=== PATIENT | male | born 1965 | race Caucasian/White ===

== ENCOUNTER → 2020-02-10 09:35 | Outpatient (BNVA) | payer BC, SELFPAY | PROVIDERS: Family Provider Nurse Practitioner Family; PCP Nurse Practitioner Family; Visit Provider Nurse Practitioner Family | DX: I10 Essential (primary) hypertension (principal); E34.9 Endocrine disorder, unspecified; E55.9 Vitamin D deficiency, unspecified | CPT/HCPCS: 80053; 80061; 82652; 83036; 84403; 84443; 85025; G0103 ==

== ENCOUNTER → 2020-07-23 11:45 | Outpatient (BNVA) | payer BC, SELFPAY | PROVIDERS: Family Provider Nurse Practitioner Family; PCP Nurse Practitioner Family; Visit Provider Nurse Practitioner Family | DX: E34.9 Endocrine disorder, unspecified (principal) | CPT/HCPCS: 84403 ==

== ENCOUNTER → 2021-06-21 10:03 | Outpatient (BNVA) | payer BC, SELFPAY | PROVIDERS: Family Provider Nurse Practitioner Family; PCP Nurse Practitioner Family; Visit Provider Nurse Practitioner Family | DX: I10 Essential (primary) hypertension (principal); Z12.5 Encounter for screening for malignant neoplasm of prostate; Z13.6 Encounter for screening for cardiovascular disorders; E34.9 Endocrine disorder, unspecified; D50.9 Iron deficiency anemia, unspecified; Z79.899 Other long term (current) drug therapy; E55.9 Vitamin D deficiency, unspecified; N52.9 Male erectile dysfunction, unspecified; Z00.00 Encounter for general adult medical examination without abnormal findings | CPT/HCPCS: 36415; 80053; 80061; 81003; 82306; 82607; 82746; 83036; 83540; 84402; 84403; 84443; 85025; G0103 ==

== ENCOUNTER 2021-07-11 12:28 | Outpatient (CLI) | payer BC, SELFPAY ==
[2021-07-11 12:57] LABS: Basophils # 0.1 10^3/uL (0.0-0.1); Basophils % 0.7 %; Eosinophils # 0.2 10^3/uL (0.0-0.8); Eosinophils % 2.5 %; Hematocrit 51.5 % (42.0-52.0); Lymphocytes # 1.9 10^3/uL (0.8-4.8); Mean Corpuscular Hemoglobin 28.5 pg (28.0-34.0); Mean Corpuscular Volume 86.3 fl (80-94); Mean Platelet Volume 8.4 fL (7.4-10.4); Monocytes # 0.7 10^3/uL (0.2-0.9); Monocytes % 7.8 %; Neutrophils # 5.92 10^3/uL (1.8-7.7); Neutrophils % 66.6 %; Nucleated Red Blood Cells % 0 %; Platelet Count 209 10^3/cmm (130-400); Red Blood Count 5.97 10^6/uL (4.1-5.3); Red Cell Distribution Width 13.4 % (12.1-15.1); White Blood Count 8.9 10^3/uL (4.0-10.0)
--- NOTE | 2021-07-11 15:36 | ONC FU_ITS ---
Dr. Rosas follow up note Patient: Alec Canada Unit #: [id number]: [id number] Dicatated By: Eliana Rosas M.D.Date of Visit:Jul 11, 2021 Onc Med Follow-up/Prog Note History of Present Illness: Mr. Alec Canada, is a 56-year-old gentleman with a history of hypogonadism, on testosterone supplement 200 mg IM biweekly for the last 4- 5 years, patient also has sleep apnea since 2009 and on CPAP machine, as per patient recently done lab work-up on June 21, 2021 showed white blood count 7.6 hemoglobin 17.4 normal being 11.7-16.6, hematocrit 52.5 normal being 42-52,Platelet count 224,000 as per patient , this was the first time he was informed about elevated hemoglobin hematocrit, otherwise, patient denies any night sweats , denies any weight loss, denies any headaches, blurred vision, double vision, denies any chest pain or heaviness, denies any shortness of breath. Patient denies any smoking but used to smoke and quit smoking about 10 years ago now chew tobacco, take alcohol occasionally, patient denies any secondhand smoking exposure. Medications: ALPRAZolam 1 Tablet (of 0.5 mg) Oral b.i.d., amLODIPine Besylate 1 Tablet (of 5 mg) Oral daily, Cyclobenzaprine HCl 1 Tablet (of 10 mg) Oral PRN, Ergocalciferol 1 Tablet (of 50 mcg ) Oral q 7 days, FeroSul 1 Tablet (of 325 (65 fe) mg) Oral daily, Lisinopril 1 Tablet (of 40 mg) Oral daily, Omeprazole 1 Capsule (of 40 mg) Capsule Delayed Release Oral daily, Sildenafil Citrate 1 Tablet (of 50 mg) Oral PRN, Testosterone Cypionate 1 mL (of 200 mg/mL) Injection q 14 days Allergies: Ciprofloxacin HCl and Sulfamethoxazole-Trimethoprim. Review of Systems: Review of Systems is not available for this patient. Vital Signs: Vitals are not available for this patient. Performance Status: 0 - Fully active, able to carry on all predisease activities without restrictions. (ECOG) Physical Examination: ENMT - No mouth sores or thrush or jaundice or cervical lymphadenopathy, Respiratory - Lungs are clear to auscultation, Cardiovascular - Regular rate and rhythm of heart, Abdomen - Soft, bowel sounds present, Extremities - . No visible edema or rash. Lab/Imaging: Most recent lab results are not available for this patient. Impression: Isolated mild polycythemia, unknown etiology most likely secondary to chronic testosterone supplement or could be due to suboptimal CPAP setting or noncompliant with CPAP machine for underlying sleep apnea or exertional hypoxemia due to morbid obesity or primary polycythemia but less likely Sleep apnea due to morbid obesity, on CPAP machine History of smoking over 20 years quit but 10 years ago, no chew tobacco History of hypogonadism, on parenteral testosterone supplement for the last 4- 5 years Plan: Discussed with patient regarding his labs white blood count 8.9 hemoglobin 17 hematocrit 51.5 normal being 42-52 platelets 209,000, with a normal differential Clinically, patient doing well with no new signs symptoms, denies any headaches blurred vision double vision, denies any shortness of breath or chest pain or heaviness, but complaining of generalized weakness and fatigue, etiology of his isolated mild polycythemia is unclear but most likely due to chronic parenteral testosterone supplement other possibility could be suboptimal CPAP machine setting or noncompliance other possibility could be exertional hypoxia due to morbid obesity At this point we will ask patient to hold testosterone supplement for a month, patient is due for next biweekly dose tomorrow morning. And he was also advised to discontinue oral iron supplement. Patient was advised to take baby aspirin daily and also be compliant with CPAP machine and maintain hydration. As far as history of hypogonadism concerned, we will recommend endocrinology consultation Patient return to clinic in 1 month with CBC if his polycythemia resolved then will monitor otherwise consider work-up for polycythemia and in case in future patient wants to continue with testosterone supplement then would recommend either testosterone patch or gel, rather than parenteral testosterone supplement as risk of secondary polycythemia is higher with parenteral testosterone supplements Signed By: Eliana Rosas M.D. <<Signature on File>>
== END 2021-07-11 12:29 | disposition home or self-care (01) ==
LOC: ONCMED 12:31
PROVIDERS: PCP Nurse Practitioner Family; Visit Provider Internal Medicine Hematology & Oncology
DX: D75.1 Secondary polycythemia (principal); E29.1 Testicular hypofunction; G47.30 Sleep apnea, unspecified; E66.01 Morbid (severe) obesity due to excess calories; Z79.899 Other long term (current) drug therapy; Z79.890 Hormone replacement therapy; Z87.891 Personal history of nicotine dependence
CPT/HCPCS: 36415; 85025; 99205

== ENCOUNTER 2021-08-16 10:01 | Outpatient (CLI) | payer BC, SELFPAY ==
[2021-08-16 10:31] LABS: Basophils % 0.5 %; Eosinophils # 0.3 10^3/uL (0.0-0.8); Eosinophils % 3.3 %; Hematocrit 47.8 % (42.0-52.0); Lymphocytes # 1.7 10^3/uL (0.8-4.8); Lymphocytes % 22.9 %; Mean Corpuscular HGB Conc 33.5 g/dL (30.0-36.0); Mean Corpuscular Volume 83.7 fl (80-94); Mean Platelet Volume 8.5 fL (7.4-10.4); Monocytes # 0.5 10^3/uL (0.2-0.9); Monocytes % 6.7 %; Neutrophils # 5.02 10^3/uL (1.8-7.7); Neutrophils % 66.2 %; Nucleated Red Blood Cells % 0 %; Platelet Count 228 10^3/cmm (130-400); Red Blood Count 5.71 10^6/uL (4.1-5.3); Red Cell Distribution Width 12.5 % (12.1-15.1); White Blood Count 7.6 10^3/uL (4.0-10.0)
--- NOTE | 2021-08-16 12:28 | ONC FU_ITS ---
Dr. Rosas follow up note Patient: Alec Canada Unit #: [id number]: [id number] Dicatated By: Eliana Rosas M.D.Date of Visit:Aug 16, 2021 Onc Med Follow-up/Prog Note History of Present Illness: Mr. Alec Canada, is a 56-year-old gentleman with a history of hypogonadism, on testosterone supplement 200 mg IM biweekly for the last 4- 5 years, patient also has sleep apnea since 2009 and on CPAP machine, as per patient recently done lab work-up on June 21, 2021 showed white blood count 7.6 hemoglobin 17.4 normal being 11.7-16.6, hematocrit 52.5 normal being 42-52,Platelet count 224,000 as per patient , this was the first time he was informed about elevated hemoglobin hematocrit, otherwise, patient denies any night sweats , denies any weight loss, denies any headaches, blurred vision, double vision, denies any chest pain or heaviness, denies any shortness of breath. Patient denies any smoking but used to smoke and quit smoking about 10 years ago now chew tobacco, take alcohol occasionally, patient denies any secondhand smoking exposure. Came for follow-up, denies any specific complaints of generalized weakness and fatigue, as per patient since he missed his last scheduled parenteral testosterone dose, he been feeling fatigued and tired and also having some mood swings. As per patient his testosterone level still low despite of supplements but he is less symptomatic if you take it on regular basis. Patient said he did try to get topical testosterone supplement but his insurance would not cover and is very expensive Medications: ALPRAZolam 1 Tablet (of 0.5 mg) Oral b.i.d., amLODIPine Besylate 1 Tablet (of 5 mg) Oral daily, Cyclobenzaprine HCl 1 Tablet (of 10 mg) Oral PRN, Ergocalciferol 1 Tablet (of 50 mcg ) Oral q 7 days, FeroSul 1 Tablet (of 325 (65 fe) mg) Oral daily, Lisinopril 1 Tablet (of 40 mg) Oral daily, Omeprazole 1 Capsule (of 40 mg) Capsule Delayed Release Oral daily, Sildenafil Citrate 1 Tablet (of 50 mg) Oral PRN Allergies: Ciprofloxacin HCl and Sulfamethoxazole-Trimethoprim. Review of Systems: Review of Systems is not available for this patient. Vital Signs: Performed on Aug 16, 2021 11:33 Height - 69.00 in Weight - 371.8 lbs (LOW) BSA - 2.69 sq.m BMI - 54.91 (HIGH) Temperature - 98.8 F Pulse - 84 /min Respiration - 18 /min BP - 157/87 mm(hg) (HIGH) O2 Sat - 97 % Pain - 0 Fatigue - 2 Performance Status: 0 - Fully active, able to carry on all predisease activities without restrictions. (ECOG) Physical Examination: ENMT - No mouth sores, no thrush, no jaundice, Respiratory - Lungs are clear to auscultation, Cardiovascular - Regular rate and rhythm of heart, Abdomen - Soft, bowel sounds present, Extremities - No visible edema. Lab/Imaging: Most recent lab results are not available for this patient. Impression: Isolated mild polycythemia, unknown etiology most likely secondary to chronic testosterone supplement or could be due to suboptimal CPAP setting or noncompliant with CPAP machine for underlying sleep apnea or exertional hypoxemia due to morbid obesity or primary polycythemia but less likely Sleep apnea due to morbid obesity, on CPAP machine History of smoking over 20 years quit but 10 years ago, no chew tobacco History of hypogonadism, on parenteral testosterone supplement for the last 4- 5 years Plan: Discussed with patient regarding his labs white blood count 7.6 hemoglobin 16 hematocrit 47.8 platelets 228,000 Clinically, patient doing well with no new signs symptom, his follow-up labs shows improvement in his hematocrit while he is off parenteral testosterone but now patient wants to resume because of feeling fatigue and tired and with mood swings. Patient brought his testosterone supplement with him and requesting if nurse can give him injection. At this point, will refer him to endocrinology for evaluation regarding hypogonadism and management, as patient said even with the testosterone supplement he never got his testosterone level in the normal range., While patient is on parenteral testosterone, will monitor his CBC and keep his hematocrit less than 55 and If symptomatic less than 50, and consider phlebotomy on as-needed basis. Return to clinic in 1 month with CBC Signed By: Eliana Rosas M.D. <<Signature on File>>
== END 2021-08-16 10:02 | disposition home or self-care (01) ==
LOC: ONCMED 10:03
PROVIDERS: PCP Nurse Practitioner Family; Visit Provider Internal Medicine Hematology & Oncology
DX: D45 Polycythemia vera (principal); E29.1 Testicular hypofunction; E66.01 Morbid (severe) obesity due to excess calories; Z68.43 Body mass index [BMI] 50.0-59.9, adult; G47.33 Obstructive sleep apnea (adult) (pediatric); F17.210 Nicotine dependence, cigarettes, uncomplicated; Z79.890 Hormone replacement therapy
CPT/HCPCS: 36415; 85025; 99214

== ENCOUNTER 2021-08-29 13:10 | Outpatient (CLI) | payer BC, SELFPAY ==
--- NOTE | 2021-08-29 13:28 | XR_ITS ---
WS: [id number] Right ankle, 3 views, 08/29/2021 Clinical Data: M25.571 - Pain in right ankle and joints of right foot Comparison: None. Findings: No fractures or dislocations are seen. The ankle mortise is normal. The talus and calcaneus are unrem arkable. No soft tissue swelling over the medial or lateral malleolus is seen. There is a small cyst in the medial aspect of the distal lateral malleolus. There is an anterior spur of the distal tibia. There is a plantar spur and an Achilles spur. 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
== END 2021-08-29 13:11 | disposition home or self-care (01) ==
PROVIDERS: PCP Nurse Practitioner Family; Visit Provider Nurse Practitioner Family
DX: M25.571 Pain in right ankle and joints of right foot (principal)
CPT/HCPCS: 73610

== ENCOUNTER → 2021-09-06 08:44 | Outpatient (BNVA) | payer BC, SELFPAY | PROVIDERS: PCP Nurse Practitioner Family; Referring Provider Internal Medicine Hematology & Oncology; Visit Provider Internal Medicine | DX: N52.9 Male erectile dysfunction, unspecified (principal); G47.33 Obstructive sleep apnea (adult) (pediatric); Z99.89 Dependence on other enabling machines and devices; D75.1 Secondary polycythemia; E66.9 Obesity, unspecified; Z68.43 Body mass index [BMI] 50.0-59.9, adult; R53.83 Other fatigue | CPT/HCPCS: 99204 ==

== ENCOUNTER → 2021-09-19 08:24 | Outpatient (BNVA) | payer BC, SELFPAY | PROVIDERS: PCP Nurse Practitioner Family; Visit Provider Internal Medicine | DX: M77.9 Enthesopathy, unspecified (principal); D75.1 Secondary polycythemia; E66.9 Obesity, unspecified; G47.33 Obstructive sleep apnea (adult) (pediatric); Z99.89 Dependence on other enabling machines and devices | CPT/HCPCS: 82533; 83001; 83002; 84146; 84153; 84402; 84403; 84439; 84443 ==

== ENCOUNTER 2021-11-07 10:58 | Outpatient (CLI) | payer BC, SELFPAY | END 2021-11-07 10:59 | disposition home or self-care (01) | LOC: SPT 10:58 | PROVIDERS: PCP Nurse Practitioner Family; Visit Provider Podiatrist Foot & Ankle Surgery | DX: Z46.89 Encounter for fitting and adjustment of other specified devices (principal); S93.401D Sprain of unspecified ligament of right ankle, subsequent encounter; X58.XXXD Exposure to other specified factors, subsequent encounter; M25.571 Pain in right ankle and joints of right foot; M25.371 Other instability, right ankle | CPT/HCPCS: 97760; L3030 ==

== ENCOUNTER → 2021-12-20 10:55 | Outpatient (BNVA) | payer BC, SELFPAY | PROVIDERS: PCP Nurse Practitioner Family; Visit Provider Internal Medicine | DX: D75.1 Secondary polycythemia (principal); G47.33 Obstructive sleep apnea (adult) (pediatric); Z99.89 Dependence on other enabling machines and devices; E66.9 Obesity, unspecified; E34.9 Endocrine disorder, unspecified; N52.9 Male erectile dysfunction, unspecified | CPT/HCPCS: 84153; 84403; 85025 ==

== ENCOUNTER → 2021-12-31 11:34 | Outpatient (BNVA) | payer BC, SELFPAY | PROVIDERS: PCP Nurse Practitioner Family; Visit Provider Registered Nurse | DX: R50.9 Fever, unspecified (principal); B34.9 Viral infection, unspecified; E53.8 Deficiency of other specified B group vitamins | CPT/HCPCS: 87400 ==

== ENCOUNTER → 2022-01-03 15:00 | Outpatient (BNVA) | payer BC, SELFPAY | PROVIDERS: PCP Nurse Practitioner Family; Visit Provider Registered Nurse | DX: R50.9 Fever, unspecified (principal) | CPT/HCPCS: 81000 ==

== ENCOUNTER 2022-04-25 06:00 | Day surgery (SDC) | payer BC, SELFPAY ==
[2022-04-23 10:37] VITALS: BMI 50.2
[2022-04-25 06:21] VITALS: BP 150/88; PULSE 67; RESP 18; TEMP 36.8; O2SAT 96
[2022-04-25] MEDS: sodium chloride 0.9% 1,000 ML 30 ML IV (06:29)
--- NOTE | 2022-04-25 06:59 | P.HP_ITS ---
Same Day Surgery H&P Indication for Procedure/HPI DATE OF PROCEDURE: April 25, 2022 CHIEF COMPLAINT/INDICATIONFOR SURGICAL PROCEDURE: colonoscopy PREOP DIAGNOSIS: diagnostic PLANNED PROCEDURE: Operation Date: 04/25/22 07:30 Proposed Procedures p [id number](Not Applicable) - Reinier Carroll MD Medications/Allergies* Home Medications Medication Instructions Recorded Confirmed Type amlodipine 5 mg tablet 5 mg PO DAILY 04/23/22 04/25/22 History lisinopril 40 mg tablet 40 mg PO DAILY 04/23/22 04/25/22 History omeprazole 40 mg capsule,delayed 40 mg PO DAILY 04/23/22 04/25/22 History release Allergies/Adverse Reactions Allergy/AdvReac Type Severity Reaction Status Date / Time ciprofloxacin [From Cipro] Allergy Mild rash Verified 04/25/22 06:18 sulfamethoxazole Allergy Mild rash Verified 04/25/22 06:18 [From Bactrim] trimethoprim [From Bactrim] Allergy Mild rash Verified 04/25/22 06:18 Iodinated Contrast Media Allergy thought he Verified 04/25/22 06:18 was going to Current Medications: Generic Name Dose Route Start Last Admin Trade Name Freq PRN Reason Stop Dose Admin Sodium Chloride 1,000 mls @ 30 mls/hr 04/25/22 06:15 04/25/22 06:29 Sodium Chloride 0.9% IV 04/26/22 06:14 30 mls/hr .Q24H MARLENA Administration Pertinent History/Comorbid Conditions* Medical History (Updated 04/11/22 @ 09:28 by MARZENA Dillard) Anemia, iron deficiency Anxiety Bone spur of foot Bronchitis Colon polyps COVID-19 vaccine series completed Moderna Elevated hemoglobin Environmental and seasonal allergies Erectile dysfunction Essential hypertension Hidradenitis suppurativa Hidradenitis suppurativa Hyperplastic colon polyp Hypertension screen Hypogonadism Hypotestosteronemia Infected sebaceous cyst Major depressive disorder, single episode, moderate Medication management AJAY (obstructive sleep apnea) Otitis media Polycythemia Prostate cancer screening Sinusitis Vitamin D deficiency Surgical History (Updated 12/25/20 @ 09:09 by MARZENA Davison) H/O esophagogastroduodenoscopy 2001 S/P cholecystectomy S/P colonoscopy with polypectomy 01/13/2017 Status post routine circumcision Family History (Updated 09/06/21 @ 08:59 by Sarah Barcenas LPN) Father Mother Lung disease Mother Social History Smoking and tobacco status: never smoked Second hand smoke exposure: No Smoking risk assessment/counseling performed?: No Alcohol intake: never Desire information about alcohol rehabilitation?: No Counseling given: No Desire information about substance/drug rehabilitation?: No Counseling given: No Adopted: No Caregiver/support person: No Lives independently: Yes Household members: other Housing: House Marital status: Single Number of children: 1 Highest education level completed: High School Graduate service: No Current occupational status: employed History of recent travel: No Sexually active: Yes Current gender identity: Male Agree to transfusion: Yes Pertinent Exam Findings alert, oriented x 3 and regular rate & rhythm Recommendations Surgery/Procedure today Coding Level of Care Code Acute Aerophysicist for Shree Martino
--- NOTE | 2022-04-25 06:59 | ANES.PREANE2 ---
Pre-Anesthetic Assessment Height/Weight: Height 1.75 m Weight 154.221 kg Temp Pulse Resp BP Pulse Ox 98.2 F 67 18 150/88 96 04/25/22 06:21 04/25/22 06:21 04/25/22 06:21 04/25/22 06:21 04/25/22 06:21 Preop Diagnosis: screening Operation Date: 04/25/22 07:30 Proposed Procedures p [id number](Not Applicable) - Reinier Carroll MD Familial anesthetic complications: none Was Beta Brad taken within 24 hours: N/A Was Clonidine taken within 24 hours: N/A Last intake: Intake Last Liquid Date 04/24/22 Last Liquid Time 22:00 Last Solid Date 04/23/22 Last Solid Time 19:00 Social No alcohol and No tobacco Exam alert, oriented x 3, clear to auscultation bilaterally and regular rate & rhythm Airway Submandibular: within normal limits Cervical ROM: within normal limits Mallampati: Class III Dentition: full Pulmonary Sleep Apnea CV/HEM Hypertension None reported Hepatic None reported GI Gastroesophageal Reflux Disease (controlled) Metabolic None reported Musc/skel None reported Neuropsych Anxiety and Depression Anesthetic Plan ASA status: 3 Anesthesia: MAC Medications/Allergies Home Medications Medication Instructions Recorded Confirmed Last Taken Type BiPap #1 ea 12/25/20 04/11/22 Unknown Rx ibuprofen 800 mg tablet See Rx Instructions .ROUTE 10/10/21 04/25/22 Unknown Rx .COMPLEX #90 tab albuterol sulfate 90 mcg/actuation 2 puff INHALATION Q6H PRN #8.5 g 12/02/21 04/25/22 Unknown Rx aerosol inhaler testosterone 20.25 mg/1.25 gram 3 pump TOPICAL DAILY #75 g 12/23/21 04/25/22 04/23/22 Rx (1.62 %) transdermal gel pump sildenafil 50 mg tablet (Viagra) 50 mg PO DAILY PRN 30 Days #30 tab 02/07/22 04/25/22 Unknown Rx alprazolam 0.5 mg tablet 0.5 mg PO BID #60 tab 04/11/22 04/25/22 04/24/22 Rx naproxen 500 mg tablet 500 mg PO TID 30 Days #90 tab 04/17/22 04/25/22 04/24/22 Rx amlodipine 5 mg tablet 5 mg PO DAILY 04/23/22 04/25/22 04/24/22 History lisinopril 40 mg tablet 40 mg PO DAILY 04/23/22 04/25/22 04/24/22 History omeprazole 40 mg capsule,delayed 40 mg PO DAILY 04/23/22 04/25/22 04/24/22 History release Allergies Allergy/AdvReac Type Severity Reaction Status Date / Time ciprofloxacin [From Cipro] Allergy Mild rash Verified 04/25/22 06:18 sulfamethoxazole Allergy Mild rash Verified 04/25/22 06:18 [From Bactrim] trimethoprim [From Bactrim] Allergy Mild rash Verified 04/25/22 06:18 Iodinated Contrast Media Allergy thought he Verified 04/25/22 06:18 was going to Current Medications Generic Name Dose Route Start Last Admin Trade Name Freq PRN Reason Stop Dose Admin Sodium Chloride 1,000 mls @ 30 mls/hr 04/25/22 06:15 04/25/22 06:29 Sodium Chloride 0.9% IV 04/26/22 06:14 30 mls/hr .Q24H MARLENA Administration PFSH Anesthesia Medical History (Updated 04/11/22 @ 09:28 by MARZENA Dillard) Anemia, iron deficiency Anxiety Bone spur of foot Bronchitis Colon polyps COVID-19 vaccine series completed Moderna Elevated hemoglobin Environmental and seasonal allergies Erectile dysfunction Essential hypertension Hidradenitis suppurativa Hidradenitis suppurativa Hyperplastic colon polyp Hypertension screen Hypogonadism Hypotestosteronemia Infected sebaceous cyst Major depressive disorder, single episode, moderate Medication management AJAY (obstructive sleep apnea) Otitis media Polycythemia Prostate cancer screening Sinusitis Vitamin D deficiency Surgical History H/O esophagogastroduodenoscopy 2001 S/P cholecystectomy S/P colonoscopy with polypectomy 01/13/2017 Status post routine circumcision Family History Father No problems noted. Mother Lung disease Social History Smoking and tobacco status: never smoked Second hand smoke exposure: No Smoking risk assessment/counseling performed?: No Alcohol intake: never Desire information about alcohol rehabilitation?: No Counseling given: No Desire information about substance/drug rehabilitation?: No Counseling given: No Adopted: No Caregiver/support person: No Lives independently: Yes Household members: other Housing: House Marital status: Single Number of children: 1 Highest education level completed: High School Graduate service: No Current occupational status: employed History of recent travel: No Sexually active: Yes Current gender identity: Male Agree to transfusion: Yes Data Anesthesia Cardiac Studies: No Data to Display
[2022-04-25 08:00] VITALS: BP 160/70; PULSE 74; RESP 12; TEMP 36.2; O2SAT 96
[2022-04-25 08:09] VITALS: BP 137/116; PULSE 69; RESP 16; O2SAT 96
--- NOTE | 2022-04-25 08:15 | ANE.PACU2 ---
Inpatient post-anesthesia follow up: Airway intact: Yes Vital signs: Temperature 97.2 F Pulse Rate 69 Respiratory Rate 16 Blood Pressure 137/116 Pulse Oximetry 96 Oxygen Delivery Me thod Room Air Oxygen Flow Rate Fraction of Inspir ed Oxygen Hydration adequate: Yes Nausea and vomiting: No Pain level: 1 Mental status: Baseline
[2022-04-25 08:22] VITALS: BP 153/75; PULSE 63; RESP 16; O2SAT 96
== END 2022-04-25 08:25 | disposition home or self-care (01) ==
PROVIDERS: PCP Nurse Practitioner Family; Visit Provider Surgery
PROC: 0DJD8ZZ Inspection of Lower Intestinal Tract, Via Natural or Artificial Opening Endoscopic (ICD-10-PCS; CPT 45378; principal; 2022-04-25 07:30)
DX: K63.5 Polyp of colon (principal); Z86.010 Personal history of colon polyps; G47.33 Obstructive sleep apnea (adult) (pediatric); K64.8 Other hemorrhoids; G47.30 Sleep apnea, unspecified; K21.9 Gastro-esophageal reflux disease without esophagitis; I10 Essential (primary) hypertension; F41.9 Anxiety disorder, unspecified; F32.9 Major depressive disorder, single episode, unspecified
CPT/HCPCS: 45385; 88305; J2704; J7030

== ENCOUNTER → 2022-10-06 09:54 | Outpatient (BNVA) | payer BC, SELFPAY | PROVIDERS: PCP Nurse Practitioner Family; Visit Provider Family Medicine | DX: R50.9 Fever, unspecified (principal); R69 Illness, unspecified; J10.1 Influenza due to other identified influenza virus with other respiratory manifestations; J32.9 Chronic sinusitis, unspecified | CPT/HCPCS: 87400 ==

== ENCOUNTER → 2022-11-18 09:36 | Outpatient (BNVA) | payer BC, SELFPAY | PROVIDERS: PCP Nurse Practitioner Family; Visit Provider Internal Medicine | DX: E34.9 Endocrine disorder, unspecified (principal); E66.9 Obesity, unspecified; G47.33 Obstructive sleep apnea (adult) (pediatric); Z99.89 Dependence on other enabling machines and devices; D75.1 Secondary polycythemia | CPT/HCPCS: 36415; 80053; 84153; 84403; 85025 ==

== ENCOUNTER → 2023-03-23 14:21 | Outpatient (BNVA) | payer BC, SELFPAY | PROVIDERS: PCP Nurse Practitioner Family; Visit Provider Nurse Practitioner | DX: R05.9 Cough, unspecified (principal); R50.9 Fever, unspecified; J30.89 Other allergic rhinitis | CPT/HCPCS: 85025; 86000; 86618; 86666; 86757; 87400; 87426 ==

== ENCOUNTER 2024-03-15 07:40 | Outpatient (CLI) | payer BC, SELFPAY ==
--- NOTE | 2024-03-15 07:45 | XRR_ITS ---
PROCEDURE INFORMATION: Exam: XR Lumbosacral Spine Exam date and time: 03/15/2024 7:55 AM Age: 58 years old Clinical indication: Low back pain; Additional info: M54.50 - low back pain, unspecified TECHNIQUE: Imaging protocol: Radiologic exam of the lumbosacral spine. Views: 2 or 3 views. COMPARISON: No relevant prior studies available. FINDINGS: Bones/joints: Diffuse degenerative change of the visualized osseous structures, most severe at L5-S1. At least [id number] osseous neural foraminal narrowing at L5-S1 and L4-L5. Moderate to severe disc height loss at L5-S1. Moderate disc height loss at L4-L5. Mild disc height loss at L3-L4. Soft tissues: Unremarkable. XR/XR lumbar spine 2-3V* [id number] IMPRESSION: 1. No acute or aggressive osseous abnormality. 2. Degenerative change as detailed above.
== END 2024-03-15 07:41 | disposition home or self-care (01) ==
LOC: RAD 07:42
PROVIDERS: PCP Nurse Practitioner Family; Visit Provider Nurse Practitioner Family
DX: M47.896 Other spondylosis, lumbar region (principal); M54.50 Low back pain, unspecified; G89.29 Other chronic pain
CPT/HCPCS: 72100

== ENCOUNTER → 2024-03-31 11:02 | Outpatient (BNVA) | payer BC, SELFPAY | PROVIDERS: PCP Nurse Practitioner Family; Visit Provider Orthopaedic Surgery | DX: M54.9 Dorsalgia, unspecified (principal) | CPT/HCPCS: 72110 ==

== ENCOUNTER → 2024-04-26 16:37 | Outpatient (CLI) | payer BC, SELFPAY ==
--- NOTE | 2024-04-26 16:45 | MR_ITS ---
WS: [id number] MRI LUMBAR SPINE NONCONTRAST TECHNIQUE: Sagittal T1, T2 and STIR imaging. Axial T1 and T2 imaging. CLINICAL INFORMATION: M54.50 - Low back pain, unspecified COMPARISON: None. FINDINGS: Counting performed from the craniocervical junction. 4 nonrib-bearing lumbar vertebral bodies. First sacral segment is considered L5 for the purposes of this dictation. T12-L1: Mild facet arthropathy. Spinal canal and foramen are patent. L1-L2: No significant disc bulging. Moderate facet arthropathy. Spinal canal and foramen are patent. L2-L3: Mild annular bulging. Moderate facet arthropathy. Spinal canal and foramen are patent. L3-L4: Mild annular bulging. Shallow LEFT paracentral protrusion. Slight impingement on the LEFT suba rticular recess and traversing LEFT L4 nerve root. Moderate to advanced arthropathy. Foramen are leija nt. L4-L5: Disc osteophyte complex eccentric to the RIGHT. RIGHT foraminal disc osteophyte protrusion imp inges the exiting RIGHT L4 nerve root with moderate RIGHT foraminal narrowing. LEFT foramen is patent . Moderate facet arthropathy. L5-S1: First sacral segment considered L5. Spinal canal and foramen are patent. Visualized pelvic bony structures: Normal. Paravertebral soft tissues: Normal. MR/MR lumbar spine wo con* [id number] IMPRESSION: 1. Counting performed from the craniocervical junction. 4 nonrib-bearing lumba r vertebral bodies. First sacral segment is considered L5 for the purposes of t his dictation. 2. Mild lumbar curve. No acute compression. 3. Shallow LEFT subarticular protrusion L3-4 with slight impingement on the LE FT subarticular recess and traversing LEFT L4 nerve root. 4. RIGHT foraminal disc protrusion L4-5 impinges the exiting RIGHT L4 nerve ro ot with moderate RIGHT foraminal narrowing. 5. Moderate facet arthropathy L3-L4 and L4-L5.
== END | disposition home or self-care (01) ==
LOC: RAD 16:36
PROVIDERS: PCP Nurse Practitioner Family; Visit Provider Nurse Practitioner Family
DX: M51.36 Other intervertebral disc degeneration, lumbar region (principal); M47.896 Other spondylosis, lumbar region; M25.78 Osteophyte, vertebrae; M51.26 Other intervertebral disc displacement, lumbar region
CPT/HCPCS: 72148

== ENCOUNTER → 2024-10-25 15:49 | Outpatient (BNVA) | payer BC, SELFPAY | PROVIDERS: PCP Nurse Practitioner Family; Visit Provider Orthopaedic Surgery | DX: M54.50 Low back pain, unspecified (principal); G89.29 Other chronic pain | CPT/HCPCS: 72110 ==

== ENCOUNTER → 2024-12-14 14:41 | Outpatient (BNVA) | payer BC, SELFPAY | PROVIDERS: PCP Nurse Practitioner Family; Visit Provider Nurse Practitioner Family | DX: F41.1 Generalized anxiety disorder (principal); F41.0 Panic disorder [episodic paroxysmal anxiety]; E66.9 Obesity, unspecified; I10 Essential (primary) hypertension; Z79.899 Other long term (current) drug therapy | CPT/HCPCS: 80053; 80061; 81003; 83036; 84443; 85025; G0103 ==